=== PATIENT | female | born 2000 | race Caucasian/White ===

== ENCOUNTER 2018-02-12 15:02 | Emergency (ER) | payer OTHER ==
[~2018-02-12] VITALS: Ht 170.2 cm; Wt 117.9 kg
[2018-02-12 17:00] VITALS: BP 138/88
== END 2018-02-12 17:28 | disposition home or self-care (01) ==
LOC: ER 15:08
DX: R51 Headache (principal); R07.89 Other chest pain; V43.52XA Car driver injured in collision with other type car in traffic accident, initial encounter; Y93.89 Activity, other specified; Y92.89 Other specified places as the place of occurrence of the external cause; Y99.8 Other external cause status
CPT/HCPCS: 99281; A4606; J7030; Z7610; Z7502